=== PATIENT | male | born 1950 | race Caucasian/White ===

== ENCOUNTER 2016-07-11 17:29 | Emergency (ER) | payer MEDICARE, BC ==
[~2016-07-11] VITALS: Wt 70.0 kg
[~2016-07-11 17:29] MED LIST: ALBU8.5H3 IH; AMLO-145 PO; ASPI-535 PO; BCL80INH INH; CYCL-319 PO; FINA5TAB4 PO; FLUT16SP24 NS; HYDR-3025 PO; LISI40TA PO; LORA10TA PO; METF500T4 PO; NAPR-683 PO; PRAV80TA27 PO; RANI300C7 PO; TERA10CA42 PO; [UNRECOGNIZED DRUG - CODE] IM
--- NOTE | 2016-07-11 17:59 | RADRPT ---
PROCEDURE: XR Hand. CLINICAL INDICATION: Trauma. Pain. TECHNIQUE: Three views of the right hand were obtained. COMPARISON: No prior studies are available for comparison. FINDINGS: There is an age indeterminate 1 mm ossific density at the radial aspect of the distal interphalangea l joint of the first digit. No other potential fracture is identified. Joint relationships are sallie ntained. Bone mineralization is within normal limits. Soft tissues are unremarkable. IMPRESSION: Age-indeterminate 1 mm ossific density suspicious for avulsion fracture at the radial aspect of the distal interphalangeal joint of the first digit. RPTAT: HMVK .Gustavo Edwards MD, MD Date Time Electronically viewed and signed by .Gustavo Edwards MD, on 07/11/2016 17:58 .K/
[2016-07-11] MEDS ORDERED: IBUP-1542 PO (18:17)
--- NOTE | 2016-07-11 18:31 | ERD ---
ER Documentation Chief Complaint Date/Time DATE: 07/11/16 TIME: 18:26 Chief Complaint RIGHT HAND PAIN AND SWELLING FROM A FALL YESTERDAY. NO DEFORMITY HPI This 66-year-old male presents with right hand pain after mechanical fall yesterday. Bruising over the palm. There is no restricted range of motion weakness does not complain of wrist pain in her elbow pain. There is no bleeding or lacerations . ROS All systems reviewed and are negative except as per history of present illness. Medications Home Meds Active Scripts Ibuprofen* (Motrin*) 600 Mg Tab, 600 MG PO Q6, #20 TAB Prov:NELSON RUDOLPH MD 07/11/16 Reported Medications Amlodipine Besylate* (Amlodipine Besylate*) 5 Mg Tablet, 5 MG PO DAILY 08/06/13 Testosterone Enanthate (Testosterone Enanthate) 200 Mg/Ml Vial, 200 MG IM [id number], VIAL 08/06/13 Aspirin Ec (Aspir 81) 81 Mg Tablet.dr, 81 MG PO DAILY 08/06/13 Finasteride* (Finasteride*) 5 Mg Tablet, 5 MG PO DAILY 08/06/13 Lisinopril* (Prinivil*) 40 Mg Tablet, 40 MG PO DAILY 08/06/13 Fluticasone Propionate* (Flonase* Nasal) 16 Gm [place].susp, 16 GM NS 08/06/13 Loratadine (Loratadine) 10 Mg Tablet, 10 MG PO 08/06/13 Metformin* (Glucophage*) 500 Mg Tab, 500 MG PO BID, TAB 08/06/13 Naproxen* (Naproxen*) 250 Mg Tablet, 250 MG PO TID 08/06/13 Ranitidine Hcl (Ranitidine Hcl) 300 Mg Capsule, 300 MG PO HS 08/06/13 Albuterol Sulfate* (Proair HFA*) 8.5 Gm Hfa.aer.ad, 8.5 GM IH Y for prn 08/06/13 Beclomethasone Dip (Qvar 80) 1 Puff Inha, 2 PUFF INH BID, INH RINSE MOUTH AFTER EACH USE 08/06/13 Pravastatin Sodium* (Pravastatin Sodium*) 80 Mg Tablet, 80 MG PO HS 08/06/13 Terazosin Hcl* (Terazosin Hcl*) 10 Mg Capsule, 10 MG PO HS 08/06/13 Hydrocodone Bit-Acetaminophen* (Vicodin* ES) 1 Each Tablet, 1 EACH PO TID Y for PAIN for 30 Days 08/06/13 Cyclobenzaprine Hcl* (Cyclobenzaprine Hcl*) 10 Mg Tablet, 10 MG PO HS 08/06/13 Allergies Allergies: Coded Allergies: No Known Drug Allergies (Verified Allergy, Mild, 01/15/13) PMhx/Soc History of Surgery: Yes (abdominal surgery) Anesthesia Reaction: No Hx Neurological Disorder: No Hx Respiratory Disorders: Yes (ASTHMA) Hx Cardiac Disorders: No Hx Psychiatric Problems: No Hx Miscellaneous Medical Probl: Yes (dm) Hx Alcohol Use: No Hx Substance Use: No Hx Tobacco Use: No Smoking Status: Never smoker Physical Exam Vitals Vital Signs Date Time Temp Pulse Resp B/P Pulse Ox O2 Delivery O2 Flow Rate FiO2 07/11/16 17:30 98.6 91 20 133/72 97 Physical Exam Const: [] Alert, [id number] Head: Atraumatic Eyes: Normal Conjunctiva ENT: Normal External Ears, Nose and Mouth. Neck: Full range of motion..~ No meningismus. Resp: Clear to auscultation bilaterally Cardio: Regular rate and rhythm, no murmurs Abd: Soft, non tender, non distended. Normal bowel sounds Skin: No petechiae or rashes Back: No midline or flank tenderness Ext: No cyanosis, or edema. There is some tenderness and bruising over the right palm. There is no appreciable deformities, there is no restricted range of motion weakness. There is no wrist or snuffbox tenderness Neur: Awake and alert Psych: Normal Mood and Affect Procedures/MDM X-ray Hand 3V interpreted by me: Scaphoid: [Normal] Bones: There is an old appearing avulsion fracture at the DIP of the index finger. Joints: [No dislocation] Foreign body: [None]. Impression-no acute findings on right hand x-ray. There is an old avulsion fracture at the DIP of the index finger Patient confirms that fracture of the index finger is old since he was a teenager. He has no tenderness at the right index finger DIP in the area of abnormality on x-ray. Patient has no signs or symptoms of fracture dislocation in the area of swelling and bruising on his right hand where he fell yesterday. Patient was placed in a right short arm splint. Splint Assessment: Neurovascularly intact post splint placement with good fit. Patient will be treated with ibuprofen and instructed to follow-up his primary doctor and possibly orthopedist for pain next week. Return sooner for fevers, redness, new or worsening symptoms. Departure Diagnosis: Primary Impression: Contusion, hand Encounter type: initial encounter Laterality: right Qualified Code: S60.221A - Contusion of right hand, initial encounter Condition: Stable Patient Instructions: Contusion, Hand Additional Instructions: X-ray read as normal except for known old finger chip fracture. See primary doctor orthopedist for pain next week. Recheck sooner for fevers, redness, new symptoms. NELSON RUDOLPH MD Jul 11, 2016 18:31
[2016-07-11] MEDS ORDERED: IBUPROFEN 600 MG TAB PO ONE (19:00)
== END 2016-07-11 18:40 | disposition home or self-care (01) ==
LOC: FTE 17:29
DX: S60.221A Contusion of right hand, initial encounter (principal); J45.909 Unspecified asthma, uncomplicated; E11.9 Type 2 diabetes mellitus without complications; W18.39XA Other fall on same level, initial encounter; Y92.9 Unspecified place or not applicable; Z79.84 Long term (current) use of oral hypoglycemic drugs; Z79.82 Long term (current) use of aspirin

== ENCOUNTER 2017-06-08 05:49 | Inpatient (IN) | END 2017-06-10 18:31 | disposition home or self-care (01) | DRG 269 ==

== ENCOUNTER 2018-07-31 03:19 | Emergency (ER) | payer MEDICARE, BC ==
[~2018-07-31] VITALS: Wt 89.0 kg
[~2018-07-31 03:19] MED LIST changes: -ALBU8.5H3 IH; +ALBU8.5H8 IH; -CYCL-319 PO; +CYCL10TA7 PO; +IBUP-1542 PO; +METF-849 PO; -METF500T4 PO; +TERA10CA3 PO; -TERA10CA42 PO
[2018-07-31] MEDS ORDERED: morphine 4 MG/ML VIAL IV ONE (04:48)
[2018-07-31] MEDS ORDERED: ONDANSETRON 4 MG INJ IV ONE (04:48)
--- NOTE | 2018-07-31 05:20 | ERD ---
ER Documentation Chief Complaint Chief Complaint bib self, cc: dizziness, patient does not complain of cp HPI This is a 68-year-old male, presents for evaluation of lightheadedness associated with nausea, this in the setting of abdominal pain. Patient has a prior history of endovascular stent repair, he has not had a fever, symptoms were aggravated by drinking coffee, and also taking an [place] which she has been taking for pain. He has not had a fever, he denies any chest pain or shortness of breath. ROS All systems reviewed and are negative except as per history of present illness. Medications Home Meds Active Scripts Ibuprofen* (Motrin*) 600 Mg Tab, 600 MG PO Q6, #20 TAB Prov:NELSON RUDOLPH MD 07/11/16 Reported Medications Amlodipine Besylate* (Amlodipine Besylate*) 5 Mg Tablet, 5 MG PO DAILY 08/06/13 Testosterone Enanthate (Testosterone Enanthate) 200 Mg/Ml Vial, 200 MG IM [id number], VIAL 08/06/13 Aspirin Ec (Aspir 81) 81 Mg Tablet.dr, 81 MG PO DAILY 08/06/13 Finasteride* (Finasteride*) 5 Mg Tablet, 5 MG PO DAILY 08/06/13 Lisinopril* (Prinivil*) 40 Mg Tablet, 40 MG PO DAILY 08/06/13 Fluticasone Propionate* (Flonase* Nasal) 16 Gm [place].susp, 16 GM NS 08/06/13 Loratadine (Loratadine) 10 Mg Tablet, 10 MG PO 08/06/13 Metformin* (Glucophage*) 500 Mg Tab, 500 MG PO BID, TAB 08/06/13 Naproxen* (Naproxen*) 250 Mg Tablet, 250 MG PO TID 08/06/13 Ranitidine Hcl (Ranitidine Hcl) 300 Mg Capsule, 300 MG PO HS 08/06/13 Albuterol Sulfate* (Proair HFA*) 8.5 Gm Hfa.aer.ad, 8.5 GM IH PRN for prn 08/06/13 Beclomethasone Dip (Qvar 80) 1 Puff [place]ha, 2 PUFF INH BID, INH RINSE MOUTH AFTER EACH USE 08/06/13 Pravastatin Sodium* (Pravastatin Sodium*) 80 Mg Tablet, 80 MG PO HS 08/06/13 Terazosin Hcl* (Terazosin Hcl*) 10 Mg Capsule, 10 MG PO HS 08/06/13 Hydrocodone Bit-Acetaminophen* (Vicodin* ES) 1 Each Tablet, 1 EACH PO TID PRN for PAIN for 30 Days 08/06/13 Cyclobenzaprine Hcl* (Cyclobenzaprine Hcl*) 10 Mg Tablet, 10 MG PO HS 08/06/13 Allergies Allergies: Coded Allergies: No Known Drug Allergies (Verified Allergy, Mild, 01/15/13) PMhx/Soc History of Surgery: Yes (apendisitis, aneurisma reparer) Anesthesia Reaction: No Hx Neurological Disorder: No Hx Respiratory Disorders: Yes (astma) Hx Cardiac Disorders: Yes (ht, aneurisma, dl) Hx Psychiatric Problems: No Hx Miscellaneous Medical Probl: No Hx Alcohol Use: Yes Hx Substance Use: Yes (cocain 20years ago) Hx Tobacco Use: Yes Smoking Status: Former smoker Physical Exam Vitals Vital Signs Date Temp Pulse Resp B/P (MAP) Pulse Ox O2 O2 Flow FiO2 Time Delivery Rate 07/31/18 98.1 72 19 141/81 100 03:34 (101) Physical Exam Const: Well-developed, well-nourished, in no acute distress Head: Atraumatic Eyes: Normal Conjunctiva, pupils equal round reactive to ENT: Normal External Ears, Nose and Mouth. Neck: Full range of motion. No meningismus. Resp: Clear to auscultation bilaterally Cardio: Regular rate and rhythm, no murmurs Abd: Soft, non tender, non distended, no rebound or guarding. Normal bowel sounds Skin: No petechiae or rashes Back: No midline or flank tenderness Ext: No cyanosis, or edema Neur: Awake and alert Psych: Normal Mood and Affect Result Diagram: 07/31/18 0342 07/31/18 0342 Results 24 hrs Laboratory Tests Test 07/31/18 03:42 White Blood Count 6.0 10^3/ul Red Blood Count 5.63 10^6/ul Hemoglobin 13.0 g/dl Hematocrit 40.8 % Mean Corpuscular Volume 72.5 fl Mean Corpuscular Hemoglobin 23.1 pg Mean Corpuscular Hemoglobin Concent 31.9 g/dl Red Cell Distribution Width 17.9 % Platelet Count 242 10^3/UL Mean Platelet Volume 9.4 fl Immature Granulocytes % 0.800 % Neutrophils % 57.6 % Lymphocytes % 27.5 % Monocytes % 10.1 % Eosinophils % 3.3 % Basophils % 0.7 % Nucleated Red Blood Cells % 0.0 /100WBC Immature Granulocytes # 0.050 10^3/ul Neutrophils # 3.5 10^3/ul Lymphocytes # 1.7 10^3/ul Monocytes # 0.6 10^3/ul Eosinophils # 0.2 10^3/ul Basophils # 0.0 10^3/ul Nucleated Red Blood Cells # 0.0 10^3/ul Prothrombin Time 11.8 Sec Prothrombin Time Ratio 0.9 INR International Normalized Ratio 0.86 Sodium Level 135 mmol/L Potassium Level 4.1 mmol/L Chloride Level 98 mmol/L Carbon Dioxide Level 26 mmol/L Anion Gap 11 Blood Urea Nitrogen 15 mg/dl Creatinine 0.58 mg/dl Est Glomerular Filtrat Rate mL/min > 60 mL/min Glucose Level 172 mg/dl Calcium Level 9.4 mg/dl Total Bilirubin 0.1 mg/dl Direct Bilirubin 0.00 mg/dl Indirect Bilirubin 0.1 mg/dl Aspartate Amino Transf (AST/SGOT) 28 IU/L Alanine Aminotransferase (ALT/SGPT) 31 IU/L Alkaline Phosphatase 101 IU/L Troponin I < 0.012 ng/ml B-Type Natriuretic Peptide 27 PG/ML Total Protein 6.9 g/dl Albumin 4.4 g/dl Globulin 2.50 g/dl Albumin/Globulin Ratio 1.76 Current Medications Medications Dose Sig/Alfred Start Time Status Last (Trade) Ordered Route PRN Stop Time Admin Dose Reason Admin Morphine 4 mg ONCE ONCE 07/31/18 DC 07/31/18 Sulfate IV 04:48 04:55 (morphine) 07/31/18 04:49 Ondansetron 4 mg ONCE ONCE 07/31/18 DC 07/31/18 HCl (Zofran IV 04:48 04:55 Inj) 07/31/18 04:49 Procedures/MDM 68-year-old male who presents for evaluation of nausea, lightheadedness, in the setting of abdominal pain. Exam reveals a well-appearing nontoxic, pleasant male in no acute distress. Skin no peritoneal signs on abdominal exam, he has history of diverticulitis, and CT abdomen pelvis was ordered, which showed no evidence of diverticulitis, and otherwise no acute findings, his lab workup was overall unremarkable, with no evidence of leukocytosis, and no evidence of metabolic acidosis. The patient remained hemodynamically stable in the ED, I considered anginal equivalent, and EKG was ordered which showed no evidence of ischemia and his troponin was also negative. I discussed the findings with the patient and spouse, who felt comfortable being discharged home. Strict return precautions were given for any worsening pain, fever, or any other concerns. At discharge the patient was in no acute distress. EKG: Rate/Rhythm: Normal Sinus Rhythm QRS, ST, T-waves: No changes consistent w/ acute ischemia Impression: No evidence of ischemia or arrhythmia IMPRESSION: No definite new acute intra-abdominal or pelvic abnormality including no evidence of urinary tract stone or secondary signs of urinary tract obstruction. Colonic diverticulosis without evidence of diverticulitis, intestinal obstruction, free air or abscess. 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 No evidence of active/acute hemorrhage or enlarging aneurysm. Assessment of the graft with IV contrast could be considered on a follow-up basis as clinically warranted.. Departure Diagnosis: Primary Impression: Abdominal pain Abdominal location: unspecified location Qualified Codes: R10.9 - Unspecified abdominal pain Additional Impression: Nausea ALISE SINGLETON MD Jul 31, 2018 05:20
[2018-07-31 05:39] VITALS: BP 121/76; PULSE 89; RESP 16
== END 2018-07-31 05:40 | disposition home or self-care (01) ==
LOC: E/R 03:19
DX: R10.9 Unspecified abdominal pain (principal); R11.0 Nausea; I10 Essential (primary) hypertension; J45.909 Unspecified asthma, uncomplicated; E11.9 Type 2 diabetes mellitus without complications; Z79.82 Long term (current) use of aspirin; Z79.84 Long term (current) use of oral hypoglycemic drugs; Z87.891 Personal history of nicotine dependence
CPT/HCPCS: 36415; 71045; 74176; 80053; 83880; 84484; 85025; 85610; 93005; 96374; 96375; 99285; J2270; J2405

== ENCOUNTER 2018-11-14 16:02 | Emergency (ER) | payer MEDICARE, BC ==
[~2018-11-14] VITALS: Ht 154.9 cm; Wt 79.3 kg
[2018-11-14 16:19] VITALS: Ht 154.9 cm; Wt 79.3 kg
[2018-11-14] MEDS ORDERED: ONDANSETRON 4 MG INJ IV STA (17:27)
[2018-11-14] MEDS ORDERED: SOD CHLORIDE 0.9% 1,000 ML IV ONE (17:30)
[2018-11-14] MEDS ORDERED: HYDR-3980 PO (18:13)
[2018-11-14] MEDS ORDERED: GABA300C16 PO (18:14)
[2018-11-14] MEDS ORDERED: MONT10TA24 PO (18:14)
[2018-11-14] MEDS ORDERED: CHOL200056 PO (18:15)
[2018-11-14] MEDS ORDERED: METF500T24 PO (18:15)
[2018-11-14] MEDS ORDERED: OMEP40CA6 PO (18:15)
[2018-11-14] MEDS ORDERED: PRAV40TA76 PO (18:16)
[2018-11-14] MEDS ORDERED: SERT50TA6 PO (18:16)
[2018-11-14] MEDS ORDERED: LISI40TA3 PO (18:17)
[2018-11-14] MEDS ORDERED: AMLO5TAB4 PO (18:17)
[2018-11-14] MEDS ORDERED: ALBU18HF INHALATION (18:18)
[2018-11-14] MEDS ORDERED: SOD CHLORIDE 0.9% 100 ML ONE (19:21)
[2018-11-14] MEDS ORDERED: IOHEXOL 300MG/ML 150 ML BTL ONE (19:22)
[2018-11-14] MEDS ORDERED: LOPE2CAP PO (20:05)
[2018-11-14] MEDS ORDERED: ONDA4TAB14 PO (20:05)
[2018-11-14 20:24] VITALS: BP 118/72; PULSE 78; RESP 16
--- NOTE | 2018-11-15 19:00 | ERD ---
ER Documentation Chief Complaint Chief Complaint ABD PAIN, N/V/D, ONSET 4 DAYS HPI The patient is a 68-year-old male, presenting to the ER because of low abdominal pain, diarrhea for the last 4 days, denies fever, chills, neck pain, chest pain, dyspnea, upper abdominal pain, complains of vomiting, denies dysuria, hematochezia, hematemesis. He does not smoke nor drink Past medical history: Diabetes mellitus, BPH, hypertension, dyslipidemia Past surgical history: Abdominal aortic aneurysm, appendectomy ROS All systems reviewed and are negative except as per history of present illness. Medications Home Meds Active Scripts Ondansetron (Ondansetron Odt) 4 Mg Tab.rapdis, 4 MG PO Q6H PRN for NAUSEA AND/OR VOMITING, #10 TAB Prov:MAZIN GAUTAM MD 11/14/18 Loperamide Hcl* (Imodium*) 2 Mg Capsule, 2 MG PO .AFTER EA LOOSE BM PRN for DIARRHEA, #10 TAB Prov:MAZIN GAUTAM MD 11/14/18 Reported Medications Albuterol Sulfate* (Ventolin HFA*) 18 Gm Hfa.aer.ad, 2 PUFF INHALATION Q4H, #1 INHALER 11/14/18 Amlodipine Besylate* (Norvasc*) 5 Mg Tablet, 5 MG PO DAILY, TAB 11/14/18 Lisinopril* (Lisinopril*) 40 Mg Tablet, 40 MG PO DAILY, #30 TAB 11/14/18 Sertraline Hcl* (Sertraline Hcl*) 50 Mg Tablet, 50 MG PO DAILY, #30 TAB 11/14/18 Pravastatin Sodium* (Pravastatin Sodium*) 40 Mg Tablet, 40 MG PO HS, TAB 11/14/18 Metformin Hcl* (Metformin Hcl*) 500 Mg Tablet, 500 MG PO WITH BREAKFAST DINNE, #60 TAB 11/14/18 Cholecalciferol (Vitamin D3) (Vitamin D-3) 2,000 Unit Tablet, 2000 UNIT PO DAILY, TAB 11/14/18 Omeprazole* (Omeprazole*) 40 Mg Capsule.dr, 40 MG PO DAILY, #30 CAP 11/14/18 Montelukast Sodium* (Montelukast Sodium*) 10 Mg Tablet, 10 MG PO QHS, #30 TAB 11/14/18 Gabapentin* (Gabapentin*) 300 Mg Capsule, 300 MG PO BID, #60 CAP 11/14/18 Hydrocodone/Acetaminophen (Pearson 10-325 Tablet) 1 Each Tablet, 1 EACH PO BID, T AB 11/14/18 Discontinued Reported Medications Amlodipine Besylate* (Amlodipine Besylate*) 5 Mg Tablet, 5 MG PO DAILY 08/06/13 Testosterone Enanthate (Testosterone Enanthate) 200 Mg/Ml Vial, 200 MG IM [id number], VIAL 08/06/13 Aspirin Ec (Aspir 81) 81 Mg Tablet.dr, 81 MG PO DAILY 08/06/13 Finasteride* (Finasteride*) 5 Mg Tablet, 5 MG PO DAILY 08/06/13 Lisinopril* (Prinivil*) 40 Mg Tablet, 40 MG PO DAILY 08/06/13 Fluticasone Propionate* (Flonase* Nasal) 16 Gm [place].susp, 16 GM NS 08/06/13 Loratadine (Loratadine) 10 Mg Tablet, 10 MG PO 08/06/13 Metformin* (Glucophage*) 500 Mg Tab, 500 MG PO BID, TAB 08/06/13 Naproxen* (Naproxen*) 250 Mg Tablet, 250 MG PO TID 08/06/13 Ranitidine Hcl (Ranitidine Hcl) 300 Mg Capsule, 300 MG PO HS 08/06/13 Albuterol Sulfate* (Proair HFA*) 8.5 Gm Hfa.aer.ad, 8.5 GM IH PRN for prn 08/06/13 Beclomethasone Dip (Qvar 80) 1 Puff Inha, 2 PUFF INH BID, INH RINSE MOUTH AFTER EACH USE 08/06/13 Pravastatin Sodium* (Pravastatin Sodium*) 80 Mg Tablet, 80 MG PO HS 08/06/13 Terazosin Hcl* (Terazosin Hcl*) 10 Mg Capsule, 10 MG PO HS 08/06/13 Hydrocodone Bit-Acetaminophen* (Vicodin* ES) 1 Each Tablet, 1 EACH PO TID PRN for PAIN for 30 Days 08/06/13 Cyclobenzaprine Hcl* (Cyclobenzaprine Hcl*) 10 Mg Tablet, 10 MG PO HS 08/06/13 Discontinued Scripts Ibuprofen* (Motrin*) 600 Mg Tab, 600 MG PO Q6, #20 TAB Prov:NELSON RUDOLPH MD 07/11/16 Allergies Allergies: Coded Allergies: No Known Drug Allergies (Verified Allergy, Mild, 11/14/18) PMhx/Soc History of Surgery: Yes (apendicitis, aneurism repair r lower femoral artery 2017) Anesthesia Reaction: No Hx Neurological Disorder: No Hx Respiratory Disorders: Yes (ASTHMA) Hx Cardiac Disorders: Yes (HTN) Hx Psychiatric Problems: No Hx Miscellaneous Medical Probl: Yes (DIABETES) Hx Alcohol Use: Yes (SOCIALLY) Hx Substance Use: Yes (cocain 20years ago) Hx Tobacco Use: No (1985) Smoking Status: Never smoker Physical Exam Vitals Vital Signs Date Temp Pulse Resp B/P (MAP) Pulse Ox O2 O2 Flow FiO2 Time Delivery Rate 11/14/18 78 16 118/72 99 Room Air 20:24 (87) 11/14/18 98.8 92 17 133/78 95 16:19 (96) Physical Exam Const: No acute distress. Head: Atraumatic. Eyes: Normal Conjunctiva. ENT: Normal External Ears, Nose and Mouth. Neck: Full range of motion. No meningismus. Resp: Clear to auscultation bilaterally. Cardio: Regular rate and rhythm. Abd: Soft, non distended, normal bowel sounds, non tender. Skin: No petechiae or rashes. Back: No midline or flank tenderness. Ext: No cyanosis, or edema. Neur: Awake and alert. No focal deficit Psych: Normal Mood and Affect. Result Diagram: 11/14/18 1752 11/14/18 1752 Results 24 hrs Laboratory Tests Test 11/14/18 17:52 11/14/18 18:05 White Blood Count 8.3 10^3/ul Red Blood Count 6.01 10^6/ul Hemoglobin 13.5 g/dl Hematocrit 42.7 % Mean Corpuscular Volume 71.0 fl Mean Corpuscular Hemoglobin 22.5 pg Mean Corpuscular Hemoglobin Concent 31.6 g/dl Red Cell Distribution Width 19.1 % Platelet Count 239 10^3/UL Mean Platelet Volume 9.0 fl Immature Granulocytes % 0.600 % Neutrophils % 67.2 % Lymphocytes % 23.1 % Monocytes % 8.0 % Eosinophils % 0.4 % Basophils % 0.7 % Nucleated Red Blood Cells % 0.0 /100WBC Immature Granulocytes # 0.050 10^3/ul Neutrophils # 5.6 10^3/ul Lymphocytes # 1.9 10^3/ul Monocytes # 0.7 10^3/ul Eosinophils # 0.0 10^3/ul Basophils # 0.1 10^3/ul Nucleated Red Blood Cells # 0.0 10^3/ul Prothrombin Time 12.8 Sec Prothrombin Time Ratio 1.0 INR International Normalized Ratio 0.95 Activated Partial Thromboplast Time 28.6 Sec Sodium Level 134 mmol/L Potassium Level 4.2 mmol/L Chloride Level 97 mmol/L Carbon Dioxide Level 25 mmol/L Anion Gap 12 Blood Urea Nitrogen 9 mg/dl Creatinine 0.58 mg/dl Est Glomerular Filtrat Rate mL/min > 60 mL/min Glucose Level 109 mg/dl Calcium Level 9.3 mg/dl Total Bilirubin 0.5 mg/dl Direct Bilirubin 0.00 mg/dl Indirect Bilirubin 0.5 mg/dl Aspartate Amino Transf (AST/SGOT) 40 IU/L Alanine Aminotransferase (ALT/SGPT) 49 IU/L Alkaline Phosphatase 44 IU/L Troponin I < 0.012 ng/ml Total Protein 7.5 g/dl Albumin 4.5 g/dl Globulin 3.00 g/dl Albumin/Globulin Ratio 1.50 Lipase 67 U/L Bedside Urine pH (LAB) 7.0 Bedside Urine Protein (LAB) 1+ Bedside Urine Glucose (UA) Negative Bedside Urine Ketones (LAB) Trace Bedside Urine Blood Trace-lysed Bedside Urine Nitrite (LAB) Negative Bedside Urine Leukocyte Esterase (L Negative Current Medications Medications Dose Sig/Alfred Start Time Status Last (Trade) Ordered Route PRN Stop Time Admin Dose Reason Admin Ondansetron 4 mg ONCE STAT 11/14/18 DC 11/14/18 HCl (Zofran IV 17:27 18:07 Inj) 11/14/18 17:28 Sodium 1,000 ml @ Q1H ONCE 11/14/18 DC 11/14/18 Chloride 1,000 mls/hr IV 17:30 18:08 11/14/18 18:29 IV Flush 10 ml STK-MED 11/14/18 DC 11/14/18 (NS 10 ml) ONCE .ROUTE 19:21 19:37 11/14/18 19:22 Sodium 100 ml @ ud STK-MED 11/14/18 DC 11/14/18 Chloride ONCE .ROUTE 19:21 19:37 11/14/18 19:22 Iohexol 150 ml STK-MED 11/14/18 DC 11/14/18 (Omnipaque ONCE .ROUTE 19:22 19:37 300mg/ ml) 11/14/18 19:23 Procedures/[place] [id number] Radiology Main Line: [phone] DIAGNOSTIC IMAGING REPORT Patient: KHUSHBOO BEARD : 1950 Age: 68 Sex: M MR #: [id number] DOS: 11/14/18 1710 Ordering MD: MAZIN GAUTAM MD Location: E/R Room/Bed: PROCEDURE: CT Abdomen and Pelvis with contrast. CLINICAL INDICATION: Abdominal pain. TECHNIQUE: CT scan of the abdomen and pelvis with contrast was performed on a multi-detector high-resolution CT scanner. The patient was scanned following the uncomplicated intravenous administration of 105 cc of Omnipaque 300. Coronal and sagittal reformatted images were obtained from the axial source images. Images were reviewed on a high-resolution PACS workstation. The total exam CTDI equals 17 mGy and the total exam DLP equals 1026 mGy-cm. DICOM images are available. 3-D reconstructions were notperformed. One or more of the following dose reduction techniques were utilized: 1.) Automated exposure control 2.) Adjustment of the mA +/- kV according to patient's size 3.) Use of iterative reconstruction technique. COMPARISON: 07/31/2018 FINDINGS: CT abdomen: Heart (where visible): Unremarkable. Lung bases: No evidence of pneumonia, mass, pleural effusion. Liver: Normal attenuation. No visible focal mass. Biliary ductal system: No evidence of significant dilatation. Gallbladder: There is a thin layer of moderately high attenuation material in the dependent portion of the gallbladder, presumably representing a few sand like stones. No gallbladder wall thickening or pericholecystic inflammatory change is evident. Pancreas: Unremarkable Stomach: No identifiable focal mass or gross wall thickening. Spleen: No gross splenomegaly. Abdominal colon: Normal in caliber and course. Left jessica colonic diverticula without visible inflammation. Abdominal small bowel: Normal in caliber, course, and mucosal pattern. Adrenal glands: No visible masses. Right Kidney: Normal in size and contour without focal mass or collecting system dilatation. Left kidney: Normal in size and contour without focal mass or collecting system dilatation. Abdominal aorta: Normal caliber. 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 A shorter old iliac stent graft is occluded. The neural graft is patent. No flow is evident outside of the graft. Lymph nodes: No significantly enlarged nodes. CT pelvis: Pelvic colon: Normal in caliber and course. Numerous sigmoid and descending colonic diverticula. No evidence of inflammatory change. Pelvic small bowel: Normal in caliber and course. Appendix: No visible appendix, findings suggesting possible prior appendectomy. No evidence of inflammation. Urinary bladder: Normal in size and contour without visible wall thickening. Reproductive structures: Unremarkable. Abdominal wall: Two small umbilical/periumbilical hernias, both containing adipose tissue only. Bony structures included in the scan: There is prominent diffuse degenerative change in the lumbar spine with disc disease most severe at L4-5 and L5-S1. There is moderately severe central spinal stenosis at L4-5 and bilateral L4 and L5 neural foraminal stenoses.. IMPRESSION: 1. 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 2. Left jessica colonic diverticulosis without CT evidence of diverticulitis. 3. Cholelithiasis without CT evidence of acute cholecystitis. 4. Prominent degenerative change in the lumbar spine with L4-5 central spinal stenosis and bilateral L4 and L5 neural foraminal stenoses. 5. Small umbilical hernias containing only adipose tissue. 6. Otherwise unremarkable CT of the abdomen and pelvis with no evidence of bowel obstruction, bowel perforation, urinary tract stone, urinary tract obstruction, or focal inflammatory process. None of these findings appear substantially changed since the prior study. RPTAT:AAJJ Physician Yuan Date Time Electronically viewed and signed by Physician Yuan on 11/14/2018 19:51 GW/ CC: MAZIN GAUTAM MD [id number] [place] [id number] Radiology Main Line: [phone] DIAGNOSTIC IMAGING REPORT Patient: KHUSHBOO BEARD : 1950 Age: 68 Sex: M MR #: [id number] DOS: 11/14/18 1710 Ordering MD: MAZIN GAUTAM MD Location: E/R Room/Bed: PROCEDURE: One view chest radiograph. CLINICAL INDICATION: Pain TECHNIQUE: An AP view of the chest was obtained. COMPARISON: None. FINDINGS: Mediastinum: Unremarkable. Heart size: Normal. Pulmonary vasculature: No visible engorgement. Lungs: Clear. Costophrenic sulci: Clear. Bony structures: Grossly unremarkable for age. IMPRESSION: 1. Unremarkable single view chest. RPTAT:AAJJ Physician Yuan Date Time Electronically viewed and signed by Physician Yuan on 11/14/2018 19:35 GW/ CC: MAZIN GAUTAM MD [id number] EKG: Read by emergency physician Rate/Rhythm: Normal Sinus Rhythm 82 beats/min QRS, ST, T-waves: No ST elevation, no T inversion, APC, 1st AVB Impression: Abnormal EKG MEDICAL MAKING DECISION: The patient is a 68-year-old male, presenting with acute diarrhea, treated with Zofran 4mg IV for nausea, 1 L normal saline for dehydration with good response. The differential diagnoses considered include but are not limited to cholelithia sis, cholecystitis, choledocholithiasis, cholangitis, pancreatitis, hepatitis, gastritis, peptic ulcer disease, gastric ulcer, cystitis, diverticulitis, partial small bowel obstruction. Departure Diagnosis: Primary Impression: Abdominal pain Additional Impressions: Cholelithiases Diarrhea Anemia Condition: Good Patient Instructions: Abdominal Pain, Self-Care for Vomiting and Diarrhea, Gallstones Additional Instructions: She was discharged with Imodium and Zofran Call your primary care doctor TOMORROW for an appointment during the next 1-2 days.See the doctor sooner or return here if your condition worsens before your appointment time. MAZIN GAUTAM MD Nov 15, 2018 19:00
== END 2018-11-14 20:25 | disposition home or self-care (01) ==
LOC: E/R 16:02
DX: K80.20 Calculus of gallbladder without cholecystitis without obstruction (principal); E11.9 Type 2 diabetes mellitus without complications; I10 Essential (primary) hypertension; J45.909 Unspecified asthma, uncomplicated; R19.7 Diarrhea, unspecified; D64.9 Anemia, unspecified; Z79.84 Long term (current) use of oral hypoglycemic drugs
CPT/HCPCS: 71045; 74177; 80053; 81003; 83690; 84484; 85025; 85610; 85730; 93005; J2405; J7030; Q9967; 36415; 96374

== ENCOUNTER 2019-01-02 17:25 | Emergency (ER) | payer MEDICARE, BC ==
[~2019-01-02] VITALS: Ht 160 cm; Wt 82.9 kg
[~2019-01-02 17:25] MED LIST changes: +ALBU18HF INHALATION; -ALBU8.5H8 IH; -AMLO-145 PO; +AMLO5TAB4 PO; -ASPI-535 PO; -BCL80INH INH; +CHOL200056 PO; -CYCL10TA7 PO; -FINA5TAB4 PO; -FLUT16SP24 NS; +GABA300C16 PO; -HYDR-3025 PO; +HYDR-3980 PO; -IBUP-1542 PO; -LISI40TA PO; +LISI40TA3 PO; +LOPE2CAP PO; -LORA10TA PO; -METF-849 PO; +METF500T24 PO; +MONT10TA24 PO; -NAPR-683 PO; +OMEP40CA6 PO; +ONDA4TAB14 PO; +PRAV40TA76 PO; -PRAV80TA27 PO; -RANI300C7 PO; +SERT50TA6 PO; -TERA10CA3 PO; -[UNRECOGNIZED DRUG - CODE] IM
[2019-01-02 17:33] VITALS: Ht 160 cm; Wt 82.9 kg
[2019-01-02] MEDS ORDERED: ONDANSETRON 4 MG INJ IV STA (19:02)
[2019-01-02] MEDS ORDERED: SOD CHLORIDE 0.9% 1,000 ML IV STA (19:02)
[2019-01-02] MEDS ORDERED: morphine 4 MG/ML VIAL IV STA (19:02)
[2019-01-02] MEDS ORDERED: KETOROLAC 30 MG INJ IV STA (20:52)
[2019-01-02 21:28] VITALS: BP 132/72; PULSE 72; RESP 20
== END 2019-01-02 21:30 | disposition home or self-care (01) ==
LOC: E/R 17:25
DX: R10.11 Right upper quadrant pain (principal); I10 Essential (primary) hypertension; E11.9 Type 2 diabetes mellitus without complications; J45.909 Unspecified asthma, uncomplicated; Z79.84 Long term (current) use of oral hypoglycemic drugs
CPT/HCPCS: 36415; 71045; 74176; 76705; 80053; 81003; 83690; 85025; 93005; 96374; 96375; 99285; J1885; J2270; J2405; J7030